=== PATIENT | male | born 1965 | race Caucasian/White ===

== ENCOUNTER 2022-04-15 11:38 | Outpatient (CLI) | payer MEDICARE, MEDICAID, SELFPAY | END 2022-04-15 11:39 | disposition home or self-care (01) | LOC: ANHBWCAUD 11:39 | PROVIDERS: PCP Family Medicine; Visit Provider Family Medicine | DX: G80.9 Cerebral palsy, unspecified (principal); R56.9 Unspecified convulsions | CPT/HCPCS: 92555; 92567; 92587 ==